=== PATIENT | male | born 1990 | race Two or more races ===

== ENCOUNTER 2017-03-11 23:39 | Emergency (ER) | payer SELFPAY ==
[2017-03-12] MEDS ORDERED: IBUPROFEN 600 MG TABLET PO ONE (01:06)
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
[2017-03-12] MEDS ORDERED: KETOROLAC TROMETHAMINE 60 MG/2 ML SDV IM ONE (01:26)
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
[2017-03-12] MEDS ORDERED: KETOROLAC TROMETHAMINE INJ/PF 30 MG/1 ML SDV ONE (01:27)
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
[2017-03-12 03:42] VITALS: BP 121/74
== END 2017-03-12 02:00 | disposition home or self-care (01) ==
LOC: ER 23:39
DX: S02.2XXA Fracture of nasal bones, initial encounter for closed fracture (principal); S02.40FA Zygomatic fracture, left side, initial encounter for closed fracture; S06.0X9A Concussion with loss of consciousness of unspecified duration, initial encounter; Y04.2XXA Assault by strike against or bumped into by another person, initial encounter; F17.200 Nicotine dependence, unspecified, uncomplicated
CPT/HCPCS: 70450; 70486; 72125; 99284